=== PATIENT | female | born 1970 | race Caucasian/White ===

== ENCOUNTER → 2016-05-21 | Outpatient (REF) | payer OTHER ==
[2016-05-21 11:35] LABS: BASO % 0.5 % (0.0-1.0); EOS # 0.2 K/mm3 (0.0-0.50); LARGE UNSTAINED CELL # 0.1 K/mm3 (0.0-0.4); LARGE UNSTAINED CELL % 1.8 % (0.0-4.0); LYMPH # 2.3 K/mm3 (1.5-4.5); LYMPH % 30.4 % (24.0-44.0); MEAN CORPUSCULAR HEMOGLOBIN 31.8 pg (27.0-33.0); MEAN CORPUSCULAR HGB CONC 34.2 g/dl (32.0-36.5); MEAN CORPUSCULAR VOLUME 93.1 fl (80.0-96.0); MONO # 0.3 K/mm3 (0.0-0.8); MONO % 3.9 % (0.0-5.0); NEUTROPHILS # 4.6 K/mm3 (1.8-7.7); NEUTROPHILS % 61.5 % (36.0-66.0); PLATELET COUNT, AUTOMATED 218 k/mm3 (150-450); RED CELL DISTRIBUTION WIDTH 12.3 % (11.5-14.5); WHITE BLOOD COUNT 7.4 K/mm3 (4.0-10.0)
== END ==
LOC: M SFHCCLAY 07:08
PROVIDERS: ATTEND Family Medicine
DX: D72.829 Elevated white blood cell count, unspecified (principal)

== ENCOUNTER → 2016-08-14 | Outpatient (REF) | payer OTHER | LOC: M SFHCWAGY 09:23 | PROVIDERS: ATTEND Nurse Practitioner Family | DX: Z01.419 Encounter for gynecological examination (general) (routine) without abnormal findings (principal) ==

== ENCOUNTER → 2016-08-14 | Outpatient (CLI) | payer OTHER ==
--- NOTE | 2016-08-14 10:50 | REPMRS ---
Patient History The patient states she had a clinical breast exam in 08/2016. Patient has history of high-risk lesion on a previous biopsy at age 42. Family history of colorectal cancer in father at age 50 or over and colorectal cancer in maternal grandmother at age 50 or over. Radio exam Breast Specimen of the right breast, June 20, 2013. Localization of Breast Nodule of the right breast, June 20, 2013. High risk radio exam breast specimen of the right breast, May 11, 2013. High risk stereotatic loc for ea lesion of the right breast, May 11, 2013. Digital Woman Screen Mammo: August 14, 2016 - Exam #: [id number] Bilateral CC and MLO view(s) were taken. Technologist: Jocelyne Palmer, Technologist Prior study comparison: June 28, 2015, digital woman screen mammo performed at [facility]. March 28, 2014, digital woman screen mammo performed at [facility]. FINDINGS: The breast tissue is heterogeneously dense. This may lower the sensitivity of mammography. There is a moderate amount of heterogeneously dense fibroglandular tissue which is fairly symmetric. There is no interval development of dominant mass, architectural distortion, or clustered microcalcification typical of malignancy. There has been no change in the appearance of the mammogram from the prior studies. ASSESSMENT: BI-RADS/ACR category 1 mammogram. Negative. Recommendation Routine screening mammogram of both breasts in 1 year (for women over age 40). This mammogram was interpreted with the aid of an FDA-approved computer-aided dectection system. Electronically Signed By: Price Khan MD 08/14/16 9332
== END ==
LOC: M WHC 08:37
PROVIDERS: ATTEND Nurse Practitioner Family
DX: Z12.31 Encounter for screening mammogram for malignant neoplasm of breast (principal); Z92.89 Personal history of other medical treatment

== ENCOUNTER → 2017-02-10 | Outpatient (REF) | payer OTHER | LOC: M SFHCCLAY 12:19 | PROVIDERS: ATTEND Family Medicine | DX: N39.3 Stress incontinence (female) (male) (principal) ==

== ENCOUNTER → 2017-02-10 | Outpatient (CLI) | payer OTHER ==
--- NOTE | 2017-02-10 13:55 | REP ---
LUMBAR SPINE, SEVEN VIEWS: HISTORY: Back pain. There is no acute fracture or subluxation. The L3-4 through L5-S1 intervertebral discs are decreased in height consistent with disc degeneration. Osteophytes are present on L1-5. There is narrowing of the L5-S1 facet joints. IMPRESSION: Degenerative change as described above.
== END ==
LOC: M CLY 12:40
PROVIDERS: ATTEND Family Medicine
DX: M54.5 Low back pain (principal); M51.36 Other intervertebral disc degeneration, lumbar region; M51.37 Other intervertebral disc degeneration, lumbosacral region; M25.78 Osteophyte, vertebrae

== ENCOUNTER → 2017-10-19 | Outpatient (CLI) | payer OTHER | LOC: M WHC 09:58 | DX: Z12.31 Encounter for screening mammogram for malignant neoplasm of breast (principal) ==

== ENCOUNTER → 2018-04-21 | Outpatient (CLI) | payer OTHER ==
[~2018-04-21] MED LIST: PROHANCE 279.3MG/ML 15ML VIAL (A9576) As Ordered; PROHANCE 279.3MG/ML 5ML VIAL (A9576) As Ordered
== END ==
LOC: M RAD 07:56
DX: Z12.31 Encounter for screening mammogram for malignant neoplasm of breast (principal); K76.89 Other specified diseases of liver
CPT/HCPCS: A9576

== ENCOUNTER → 2018-10-20 | Outpatient (CLI) | payer OTHER ==
--- NOTE | 2018-10-20 09:29 | REPMRS ---
Patient History The patient states she had a clinical breast exam in 10/2018. Family history of colorectal cancer at age 50 or over in maternal grandmother, colorectal cancer at age 50 or over in father. Radio exam Breast Specimen of the right breast, June 20, 2013. Localization of Breast Nodule of the right breast, June 20, 2013. High risk radio exam breast specimen of the right breast, May 11, 2013. High risk stereotatic loc for ea lesion of the right breast, May 11, 2013. Digital Woman Screen Mammo: October 20, 2018 - Exam #: [id number] Bilateral CC and MLO view(s) were taken. Technologist: Betsy Campbell, Technologist Prior study comparison: October 19, 2017, bilateral digital woman screen mammo performed at [facility]. August 14, 2016, digital woman screen mammo performed at [facility]. June 28, 2015, digital woman screen mammo performed at [facility]. FINDINGS: The breast tissue is heterogeneously dense. This may lower the sensitivity of mammography. There is a moderate amount of heterogeneously dense fibroglandular tissue which is fairly symmetric. There is no interval development of dominant mass, architectural distortion, or clustered microcalcification typical of malignancy. There has been no change in the appearance of the mammogram from the prior studies. 3-D tomosynthesis shows no additional findings. Assessment: BI-RADS/ACR category 1 mammogram. Negative Mammogram. Recommendation Breast MRI of both breasts in 6 months. Routine screening mammogram of both breasts in 1 year (for women over age 40). This patient's Lifetime Breast Cancer RIsk is estimated at 40.3 %. Annual screening Breast MRI scanniing is recommended for patient's whose lifetime risk assessment is over 20%. This mammogram was interpreted with the aid of an FDA-approved computer-aided dectection system. Electronically Signed By: Price Khan MD 10/20/18 0928
== END ==
LOC: M WHC 08:14
PROVIDERS: ATTEND Nurse Practitioner Family
DX: Z12.31 Encounter for screening mammogram for malignant neoplasm of breast (principal)

== ENCOUNTER → 2019-04-26 | Outpatient (CLI) | payer OTHER ==
[~2019-04-26] MED LIST changes: -PROHANCE 279.3MG/ML 15ML VIAL (A9576) As Ordered; +PROHANCE 279.3MG/ML 15ML VIAL (A9576) As Ordered ONE; -PROHANCE 279.3MG/ML 5ML VIAL (A9576) As Ordered
--- NOTE | 2019-04-26 12:24 | REP ---
BILATERAL BREAST MRI STUDY WITHOUT AND WITH IV GADOLINIUM: HISTORY: High risk breast cancer screening. Comparison breast MRI study April 21, 2018. Comparison mammography October 20 2018. TECHNIQUE: Three Rina MRI imaging was performed with a dedicated breast coil. Axial, coronal, and sagittal T1 and T2-weighted scans were obtained with and without fat saturation in the usual fashion. The study includes dynamically acquired post gadolinium enhanced imaging subtraction imaging. Maximal intensity projection and multiplanar re-formation imaging is included as well. The study was interpreted with the aid of [employer], an FDA approved computer-aided detection (CAD) software program, on a dedicated breast MRI work station. The gadolinium enhancement dose is 14.6 mL of intravenous ProHance. FINDINGS: There is a moderate pattern of confluent fibroglandular tissue bilaterally. There are magnetic field susceptibility artifacts indicating postoperative change in the lateral aspect of the right breast unchanged. There is multinodular background parenchymal enhancement noted unchanged from the comparison study. There is no evidence of axillary lymphadenopathy or significant breast cystic change. No suspicious area of enhancement and/or washout is seen in either breast to suggest malignancy. No suspicious morphologic change is seen. IMPRESSION: BIRADS category 2 benign findings. Repeat screening MRI study recommended 1 year. Electronically Signed by Kishan Khan MD 04/26/2019 05:50 P
== END ==
LOC: M RAD 09:12
PROVIDERS: ATTEND Nurse Practitioner Family
DX: Z91.89 Other specified personal risk factors, not elsewhere classified (principal)
CPT/HCPCS: A9576; C8908

== ENCOUNTER → 2019-06-22 | Outpatient (REF) | payer OTHER ==
[2019-06-22 12:04] LABS: HEMATOCRIT 42.5 % (36.0-47.0); HEMOGLOBIN 13.8 g/dl (12.0-15.5); MEAN CORPUSCULAR HEMOGLOBIN 31.1 pg (27.0-33.0); MEAN CORPUSCULAR HGB CONC 32.5 g/dl (32.0-36.5); MEAN CORPUSCULAR VOLUME 95.7 fl (80.0-96.0); PLATELET COUNT, AUTOMATED 220 10^3/uL (150-450); RED BLOOD COUNT 4.44 10^6/uL (4.00-5.40); WHITE BLOOD COUNT 5.4 10^3/uL (4.0-10.0)
[2019-06-22 12:13] LABS: ALBUMIN 4.1 GM/DL (3.2-5.2); ALT/SGPT 24 U/L (12-78); BILIRUBIN,TOTAL 0.3 MG/DL (0.2-1.0); BLOOD UREA NITROGEN 18 MG/DL (7-18); CARBON DIOXIDE LEVEL 26 MEQ/L (21-32); CHLORIDE LEVEL 105 MEQ/L (98-107); CHOLESTEROL LEVEL 233 MG/DL (<200); CHOLESTEROL RISK RATIO 3.883 (<5); GLOMERULAR FILTRATION RATE > 60.0 (>58); GLUCOSE, FASTING 97 MG/DL (70-100); HDL CHOLESTEROL 60 MG/DL (>40); LDL CHOLESTEROL 152 MG/DL (<100); NON-HDL-C 173 MG/DL; POTASSIUM SERUM 4.4 MEQ/L (3.5-5.1); SODIUM LEVEL 140 MEQ/L (136-145); TOTAL PROTEIN 7.6 GM/DL (6.4-8.2); TRIGLYCERIDES LEVEL 103 MG/DL (<150)
== END ==
LOC: M SFHCCLAY 07:07
PROVIDERS: ATTEND Family Medicine
DX: Z00.01 Encounter for general adult medical examination with abnormal findings (principal); N95.1 Menopausal and female climacteric states; Z83.3 Family history of diabetes mellitus

== ENCOUNTER → 2019-10-23 | Outpatient (REF) | payer OTHER | LOC: M SFHCWAGY 17:51 | PROVIDERS: ATTEND Nurse Practitioner Family | DX: Z12.4 Encounter for screening for malignant neoplasm of cervix (principal) | CPT/HCPCS: 87624; G0123 ==

== ENCOUNTER → 2019-10-23 | Outpatient (CLI) | payer OTHER ==
--- NOTE | 2019-10-23 11:05 | REPMRS ---
Patient History The patient states she had a clinical breast exam in October 2019. Family history of colorectal cancer at age 50 or over in maternal grandmother, colorectal cancer at age 50 or over in father. Radio exam Breast Specimen of the right breast, June 20, 2013. Localization of Breast Nodule of the right breast, June 20, 2013. High risk radio exam breast specimen of the right breast, May 11, 2013. High risk stereotatic loc for ea lesion of the right breast, May 11, 2013. Digital Woman Screen Mammo: October 23, 2019 - Exam #: [id number] Bilateral CC and MLO view(s) were taken. Technologist: Isabel Lindo, Technologist Prior study comparison: October 20, 2018, bilateral digital woman screen mammo performed at [facility]. October 19, 2017, bilateral digital woman screen mammo performed at [facility]. August 14, 2016, digital woman screen mammo performed at [facility]. FINDINGS: There are scattered fibroglandular densities. The Volpara volumetric breast density category is: B. There is a moderate amount of residual fibroglandular tissue which is fairly symmetric. There is no interval development of dominant mass, architectural distortion, or grouped microcalcification typical of malignancy. There has been no change in the appearance of the mammogram from the prior studies. 3-D tomosynthesis shows no additional findings. Assessment: BI-RADS/ACR category 1 mammogram. Negative Mammogram. Recommendation Breast MRI of both breasts in 6 months. Routine screening mammogram of both breasts in 1 year (for women over age 40). This patient's Lifetime Breast Cancer RIsk is estimated at 39.9 %. Annual screening Breast MRI scanniing is recommended for patient's whose lifetime risk assessment is over 20%. This mammogram was interpreted with the aid of an FDA-approved computer-aided dectection system. Electronically Signed By: Price Khan MD 10/23/19 0944
== END ==
LOC: M WHC 08:33
PROVIDERS: ATTEND Nurse Practitioner Family
DX: Z12.31 Encounter for screening mammogram for malignant neoplasm of breast (principal)

== ENCOUNTER → 2019-11-07 | Outpatient (CLI) | payer OTHER | LOC: M LABSMTC 10:18 | PROVIDERS: ATTEND Family Medicine | DX: Z03.818 Encounter for observation for suspected exposure to other biological agents ruled out (principal); Z11.59 Encounter for screening for other viral diseases | CPT/HCPCS: C9803; U0003 ==

== ENCOUNTER → 2020-05-06 | Outpatient (CLI) | payer OTHER ==
[~2020-05-06] MED LIST changes: -PROHANCE 279.3MG/ML 15ML VIAL (A9576) As Ordered ONE; +PROHANCE 279.3MG/ML 15ML VIAL As Ordered ONE
--- NOTE | 2020-05-07 08:15 | REP ---
INDICATION: AT RISK FOR BREAST CANCER. COMPARISON: Comparison mammography October 13, 2019. Comparison breast MRI study April 26, 2019. TECHNIQUE: Three Rina MRI imaging was performed with a dedicated breast coil. Axial, coronal, and sagittal T1 and T2 weighted scans were obtained with and without fat saturation in the usual fashion. The study includes dynamically acquired post gadolinium-enhanced imaging with image subtraction. Maximum intensity projection and multi planar reformation imaging is included as well. This study is interpreted with the aid of [employer], an FDA approved computer aided detection (CAD) software program, on a dedicated breast MRI workstation. The gadolinium enhancement dose is 15 mL of intravenous ProHance. FINDINGS: A moderate pattern of fibroglandular tissue is again seen bilaterally in a pattern which is symmetric. There are micrometallic artifacts in the right breast centrally posterior 3rd consistent with previous surgery. This is unchanged. There is a multinodular pattern of background parenchymal enhancement. This is a little more prominent than on the prior study but no one area or asymmetry is seen. High-resolution pre and post gadolinium enhanced T1 and T2 weighted scanning shows no suspicious morphologic abnormality in either breast. Dynamically acquired post contrast imaging shows no suspicious area of enhancement and washout to suggest malignancy. There are 2 small areas of the liver demonstrating T2 hyperintensity, T1 hypointensity, and absence of contrast enhancement consistent with hepatic cysts. The right lobe cyst measures 1.5 and the left lobe cyst measures 1.3 cm in greatest diameter. These are unchanged. IMPRESSION: Stable BI-RADS category 2 benign findings. Repeat screening breast MRI study recommended in 1 year. Annual screening mammography should continue as well. <Electronically signed by Price Khan > 05/07/20 1176
== END ==
LOC: M RAD 14:54
PROVIDERS: ATTEND Nurse Practitioner Family
DX: K76.89 Other specified diseases of liver (principal); Z91.89 Other specified personal risk factors, not elsewhere classified
CPT/HCPCS: A9576; C8908

== ENCOUNTER → 2020-06-26 | Outpatient (REF) | payer OTHER ==
[2020-06-26 12:41] LABS: ALT/SGPT 29 U/L (12-78); BILIRUBIN,TOTAL 0.2 MG/DL (0.2-1.0); BLOOD UREA NITROGEN 13 MG/DL (7-18); CALCIUM LEVEL 9.2 MG/DL (8.5-10.1); CARBON DIOXIDE LEVEL 26 MEQ/L (21-32); CHLORIDE LEVEL 105 MEQ/L (98-107); CHOLESTEROL LEVEL 241 MG/DL (<200); CHOLESTEROL RISK RATIO 3.492 (<5); CREATININE FOR GFR 0.84 MG/DL (0.55-1.30); GLOMERULAR FILTRATION RATE > 60.0 (>51); GLUCOSE, FASTING 94 MG/DL (70-100); HDL CHOLESTEROL 69 MG/DL (>40); LDL CHOLESTEROL 131 MG/DL (<100); NON-HDL-C 172 MG/DL; POTASSIUM SERUM 4.2 MEQ/L (3.5-5.1); SODIUM LEVEL 139 MEQ/L (136-145); TOTAL PROTEIN 7.2 GM/DL (6.4-8.2); TRIGLYCERIDES LEVEL 206 MG/DL (<150)
== END ==
LOC: M SFHCCLAY 08:38
PROVIDERS: ATTEND Family Medicine
DX: E78.00 Pure hypercholesterolemia, unspecified (principal)

== ENCOUNTER → 2020-10-23 | Outpatient (CLI) | payer OTHER ==
--- NOTE | 2020-10-23 10:13 | REPMRS ---
Patient History The patient states she had a clinical breast exam in October 2020. Family history of colorectal cancer at age 50 or over in maternal grandmother, colorectal cancer at age 50 or over in father. Radio exam Breast Specimen of the right breast, June 20, 2013. Localization of Breast Nodule of the right breast, June 20, 2013. High risk radio exam breast specimen of the right breast, May 11, 2013. High risk stereotatic loc for ea lesion of the right breast, May 11, 2013. No Hormone Replacement Therapy Tomosynthesis is performed. Volpara breast density is b. Patient states no breast complaints today. Patient has signed MRS History Sheet. Diagnostic Bilateral Mammo: October 23, 2020 - Exam #: [id number] Bilateral CC and MLO view(s) were taken. Technologist: Technologist Ayden Prior study comparison: October 23, 2019, bilateral digital woman screen mammo performed at [facility]. October 20, 2018, bilateral digital woman screen mammo performed at [facility]. FINDINGS: The breast tissue is heterogeneously dense. This may lower the sensitivity of mammography. There has been no change in the appearance of the mammogram from the prior studies. There is a moderate amount of residual fibroglandular tissue which is fairly symmetric. There is no interval development of dominant mass, areas of architectural distortion, or clustered microcalcification typical of malignancy. Assessment: BI-RADS/ACR category 1 mammogram. Negative Mammogram. Recommendation Routine screening mammogram in 1 year (for women over age 40). This mammogram was interpreted with the aid of an FDA-approved computer-aided dectection system. The Lifetime Breast Cancer Risk is estimated at 39.4%. Yearly supplemental screening MRI of the breasts is recommended for patients with an elevated lifetime risk of breast cancer of 20% or greater, in addition to annual screening mammography, staggered every 6 months. Electronically Signed By: Mac Castañeda MD 10/23/20 1012
== END ==
LOC: M WHC 08:12
PROVIDERS: ATTEND Advanced Practice Midwife
DX: N60.99 Unspecified benign mammary dysplasia of unspecified breast (principal); Z80.0 Family history of malignant neoplasm of digestive organs
CPT/HCPCS: 77066; G0279

== ENCOUNTER → 2020-11-15 | Outpatient (CLI) | payer OTHER ==
--- NOTE | 2020-11-15 15:19 | REP ---
INDICATION: INTERMENSTRUAL BLEEDING. COMPARISON: 05/01/2010 the latest prior TECHNIQUE: Transvesical and transvaginal scanning FINDINGS: The uterus measures 7.9 x 3.6 x 5 cm. The parenchymal echo pattern is unchanged. There are no measurable masses. The endometrial echo complex unremarkable measures 3 mm in its greatest thickness. It is slightly heterogenous in appearance but not significantly changed compared to the prior exam. The right ovary was not seen transvesical air transvaginally Left ovary measures 5 by 2.2 x 2.4 cm. There is a 2 cm sized dominant follicle in the left ovary. There is no free fluid Urinary bladder measures 13 x 6 x 9 cm. IMPRESSION: Nonvisualization of the right ovary. Dominant left ovarian follicle versus small simple cyst. Consider follow-up if clinically relevant. <Electronically signed by Edenilson Amos > 11/15/20 0085
== END ==
LOC: M WHC 14:06
PROVIDERS: ATTEND Advanced Practice Midwife
DX: N92.3 Ovulation bleeding (principal)

== ENCOUNTER → 2020-11-20 | Outpatient (REF) | payer OTHER | LOC: M SFHCWAGY 13:24 | PROVIDERS: ATTEND Advanced Practice Midwife | DX: N92.3 Ovulation bleeding (principal) ==

== ENCOUNTER → 2021-06-27 | Outpatient (REF) | payer OTHER ==
[2021-06-27 11:27] LABS: HEMATOCRIT 35.6 % (36.0-47.0); HEMOGLOBIN 11.6 g/dl (12.0-15.5); MEAN CORPUSCULAR HEMOGLOBIN 30.9 pg (27.0-33.0); MEAN CORPUSCULAR HGB CONC 32.6 g/dl (32.0-36.5); MEAN CORPUSCULAR VOLUME 94.7 fl (80.0-96.0); PLATELET COUNT, AUTOMATED 245 10^3/uL (150-450); RED BLOOD COUNT 3.76 10^6/uL (4.00-5.40); WHITE BLOOD COUNT 5.5 10^3/uL (4.0-10.0)
[2021-06-27 12:09] LABS: ALT/SGPT 28 U/L (12-78); BILIRUBIN,TOTAL 0.3 MG/DL (0.2-1.0); BLOOD UREA NITROGEN 18 MG/DL (7-18); CALCIUM LEVEL 9.3 MG/DL (8.5-10.1); CARBON DIOXIDE LEVEL 29 MEQ/L (21-32); CHLORIDE LEVEL 106 MEQ/L (98-107); CHOLESTEROL LEVEL 263 MG/DL (<200); CHOLESTEROL RISK RATIO 4.962 (<5); CREATININE FOR GFR 0.83 MG/DL (0.55-1.30); GLOMERULAR FILTRATION RATE > 60.0 (>51); GLUCOSE, FASTING 94 MG/DL (70-100); HDL CHOLESTEROL 53 MG/DL (>40); LDL CHOLESTEROL 160 MG/DL (<100); NON-HDL-C 210 MG/DL; POTASSIUM SERUM 4.2 MEQ/L (3.5-5.1); SODIUM LEVEL 140 MEQ/L (136-145); TOTAL PROTEIN 7.3 GM/DL (6.4-8.2); TRIGLYCERIDES LEVEL 248 MG/DL (<150)
== END ==
LOC: M SFHCCLAY 09:12
PROVIDERS: ATTEND Family Medicine
DX: Z00.00 Encounter for general adult medical examination without abnormal findings (principal); E78.2 Mixed hyperlipidemia; N60.99 Unspecified benign mammary dysplasia of unspecified breast

== ENCOUNTER → 2021-07-29 | Outpatient (CLI) | payer OTHER ==
[~2021-07-29] MED LIST changes: +PROHANCE 279.3MG/ML 5ML VIAL As Ordered ONE
== END ==
LOC: M RAD 14:24
PROVIDERS: ATTEND Family Medicine
DX: Z12.39 Encounter for other screening for malignant neoplasm of breast (principal); Z91.89 Other specified personal risk factors, not elsewhere classified
CPT/HCPCS: A9576; C8908

== ENCOUNTER → 2022-07-02 | Outpatient (REF) | payer OTHER ==
[2022-07-02 11:30] LABS: HEMATOCRIT 37.6 % (36.0-47.0); HEMOGLOBIN 11.7 g/dl (12.0-15.5); MEAN CORPUSCULAR HEMOGLOBIN 27.1 pg (27.0-33.0); MEAN CORPUSCULAR HGB CONC 31.1 g/dl (32.0-36.5); PLATELET COUNT, AUTOMATED 231 10^3/uL (150-450); RED BLOOD COUNT 4.32 10^6/uL (4.00-5.40); WHITE BLOOD COUNT 6.4 10^3/uL (4.0-10.0)
[2022-07-02 11:38] LABS: ALBUMIN 4.1 G/DL (3.2-5.2); ALKALINE PHOSPHATASE 71 U/L (46-116); ALT/SGPT 23 U/L (7.0-40); AST/SGOT 18 U/L (<34); BILIRUBIN,TOTAL 0.5 MG/DL (0.3-1.2); BLOOD UREA NITROGEN 18 MG/DL (9-23); CALCIUM LEVEL 9.9 MG/DL (8.5-10.1); CARBON DIOXIDE LEVEL 28 MMOL/L (20-31); CHLORIDE LEVEL 105 MMOL/L (98-107); CHOLESTEROL LEVEL 246 MG/DL (<200); CHOLESTEROL RISK RATIO 4.36 (<5); CREATININE FOR GFR 0.82 MG/DL (0.55-1.30); FREE T4 1.13 NG/DL (0.89-1.76); GLOMERULAR FILTRATION RATE > 60.0 (>51); GLUCOSE, FASTING 106 MG/DL (60-100); HDL CHOLESTEROL 56.3 MG/DL (>40); LDL CHOLESTEROL 156.9 MG/DL (<100); NON-HDL-C 190 MG/DL; POTASSIUM SERUM 4.3 MMOL/L (3.5-5.1); SODIUM LEVEL 138 MMOL/L (136-145); TOTAL PROTEIN 7.4 G/DL (5.7-8.2); TRIGLYCERIDES LEVEL 164 MG/DL (<150)
== END ==
LOC: M SFHCCLAY 07:53
PROVIDERS: ATTEND Family Medicine
DX: Z00.00 Encounter for general adult medical examination without abnormal findings (principal); N60.99 Unspecified benign mammary dysplasia of unspecified breast; E78.2 Mixed hyperlipidemia; N95.9 Unspecified menopausal and perimenopausal disorder

== ENCOUNTER 2022-12-07 08:20 | Day surgery (SDC) | payer OTHER ==
[~2022-12-07] VITALS: Ht 161.3 cm; Wt 81.6 kg
[~2022-12-07 08:20] MED LIST changes: +NS 1,000 ML IV ONE; -PROHANCE 279.3MG/ML 15ML VIAL As Ordered ONE; -PROHANCE 279.3MG/ML 5ML VIAL As Ordered ONE; +RA K500C PO; +VITA-243 PO
[2022-12-07] MEDS ORDERED: propofoL 200 MG/20 ML VIAL As Ordered ONE (10:25)
[2022-12-07] MEDS ORDERED: LIDOCAINE 2% 100MG/5ML SDV (FOR ANES.) As Ordered ONE (10:25)
[2022-12-07 10:33] VITALS: TEMP 97.9
[2022-12-07 10:50] VITALS: BP 134/93; O2SAT 100
== END 2022-12-07 11:01 | disposition home or self-care (01) ==
LOC: M OPP 08:20
PROVIDERS: ATTEND Internal Medicine Gastroenterology
DX: Z12.11 Encounter for screening for malignant neoplasm of colon (principal); Z80.0 Family history of malignant neoplasm of digestive organs

== ENCOUNTER → 2022-12-23 | Outpatient (CLI) | payer OTHER ==
[~2022-12-23] MED LIST changes: -NS 1,000 ML IV ONE
== END ==
LOC: M PLALAB 09:35
PROVIDERS: ATTEND Nurse Practitioner Family
DX: Z12.4 Encounter for screening for malignant neoplasm of cervix (principal); N95.2 Postmenopausal atrophic vaginitis
CPT/HCPCS: 36415; 87624; G0123

== ENCOUNTER → 2022-12-23 | Outpatient (CLI) | payer OTHER | LOC: M WHC 07:37 | PROVIDERS: ATTEND Nurse Practitioner Family | DX: Z12.31 Encounter for screening mammogram for malignant neoplasm of breast (principal) ==

== ENCOUNTER → 2023-06-28 | Outpatient (CLI) | payer OTHER | LOC: M RAD 07:31 → M PLAIMG 07:31 | PROVIDERS: ATTEND Nurse Practitioner Family | DX: Z91.89 Other specified personal risk factors, not elsewhere classified (principal) ==

== ENCOUNTER → 2023-07-06 | Outpatient (REF) | payer OTHER ==
[2023-07-06 12:16] LABS: HEMATOCRIT 36.8 % (36.0-47.0); HEMOGLOBIN 11.8 g/dl (12.0-15.5); MEAN CORPUSCULAR HEMOGLOBIN 28.1 pg (27.0-33.0); MEAN CORPUSCULAR HGB CONC 32.1 g/dl (32.0-36.5); MEAN CORPUSCULAR VOLUME 87.6 fl (80.0-96.0); PLATELET COUNT, AUTOMATED 236 10^3/uL (150-450); WHITE BLOOD COUNT 8.1 10^3/uL (4.0-10.0)
[2023-07-06 12:35] LABS: HEMOGLOBIN A1c 5.5 % (4.0-6.0)
[2023-07-06 12:41] LABS: ALBUMIN 4.1 G/DL (3.2-5.2); ALKALINE PHOSPHATASE 67 U/L (46-116); ALT/SGPT 23 U/L (7.0-40); AST/SGOT 15 U/L (<34); BILIRUBIN,TOTAL 0.4 MG/DL (0.3-1.2); BLOOD UREA NITROGEN 19 MG/DL (9-23); CALCIUM LEVEL 9.4 MG/DL (8.5-10.1); CARBON DIOXIDE LEVEL 27 MMOL/L (20-31); CHLORIDE LEVEL 105 MMOL/L (98-107); CHOLESTEROL LEVEL 234 MG/DL (<200); CHOLESTEROL RISK RATIO 3.87 (<5); CREATININE FOR GFR 0.75 MG/DL (0.55-1.30); FREE T4 1.15 NG/DL (0.89-1.76); GLOMERULAR FILTRATION RATE > 60.0 (>51); GLUCOSE, FASTING 98 MG/DL (60-100); HDL CHOLESTEROL 60.4 MG/DL (>40); LDL CHOLESTEROL 135.8 MG/DL (<100); NON-HDL-C 173.6 MG/DL; POTASSIUM SERUM 4.4 MMOL/L (3.5-5.1); SODIUM LEVEL 137 MMOL/L (136-145); THYROID STIMULATING HORMONE 1.832 uIU/ML (0.55-4.78); TOTAL PROTEIN 7.2 G/DL (5.7-8.2); TRIGLYCERIDES LEVEL 189 MG/DL (<150)
== END ==
LOC: M SFHCCLAY 08:13
PROVIDERS: ATTEND Family Medicine
DX: Z00.00 Encounter for general adult medical examination without abnormal findings (principal); E78.2 Mixed hyperlipidemia; Z83.3 Family history of diabetes mellitus

== ENCOUNTER → 2024-02-09 | Outpatient (CLI) | payer OTHER | LOC: M WHC 08:44 | PROVIDERS: ATTEND Nurse Practitioner Family | DX: Z12.31 Encounter for screening mammogram for malignant neoplasm of breast (principal) ==

== ENCOUNTER → 2024-08-04 | Outpatient (REF) | payer OTHER ==
[2024-08-04 13:26] LABS: ALBUMIN 4.2 G/DL (3.2-5.2); ALKALINE PHOSPHATASE 54 U/L (35-104); ALT/SGPT 19 U/L (7.0-40); AST/SGOT 16 U/L (<34); BILIRUBIN,TOTAL 0.5 MG/DL (0.3-1.2); BLOOD UREA NITROGEN 18 MG/DL (9-23); CALCIUM LEVEL 9.8 MG/DL (8.5-10.1); CARBON DIOXIDE LEVEL 29 MMOL/L (20-31); CHLORIDE LEVEL 104 MMOL/L (98-107); CHOLESTEROL LEVEL 283 MG/DL (<200); CHOLESTEROL RISK RATIO 5.14 (<5); CREATININE FOR GFR 0.82 MG/DL (0.55-1.30); GLOMERULAR FILTRATION RATE > 60.0 (>51); GLUCOSE, FASTING 100 MG/DL (60-100); POTASSIUM SERUM 4.1 MMOL/L (3.5-5.1); SODIUM LEVEL 140 MMOL/L (136-145); TOTAL PROTEIN 7.6 G/DL (5.7-8.2); TRIGLYCERIDES LEVEL 190 MG/DL (<150)
[2024-08-04 14:15] LABS: HEMOGLOBIN A1c 4.9 % (4.0-6.0)
== END ==
LOC: M SFHCCLAY 07:50
PROVIDERS: ATTEND Physician Assistant
DX: Z00.00 Encounter for general adult medical examination without abnormal findings (principal); E78.2 Mixed hyperlipidemia; Z83.3 Family history of diabetes mellitus

== ENCOUNTER → 2024-08-11 | Outpatient (CLI) | payer OTHER ==
[~2024-08-11] MED LIST changes: +PROHANCE 279.3MG/ML 15ML VIAL ONE
== END ==
LOC: M PLAIMG 12:23
PROVIDERS: ATTEND Nurse Practitioner Family
DX: Z91.89 Other specified personal risk factors, not elsewhere classified (principal)
CPT/HCPCS: A9576; C8908

== ENCOUNTER → 2025-02-14 | Outpatient (CLI) | payer OTHER ==
[~2025-02-14] MED LIST changes: -PROHANCE 279.3MG/ML 15ML VIAL ONE
== END ==
LOC: M WHC 08:04
PROVIDERS: ATTEND Nurse Practitioner Family
DX: N95.1 Menopausal and female climacteric states (principal); Z87.891 Personal history of nicotine dependence; Z13.820 Encounter for screening for osteoporosis; R92.323 Mammographic fibroglandular density, bilateral breasts; M85.88 Other specified disorders of bone density and structure, other site